=== PATIENT | female | born 1970 | race Caucasian/White ===

== ENCOUNTER 2024-10-27 13:42 | Emergency (ER) | payer OTHER ==
--- NOTE | 2024-10-27 13:52 | ERPHSYRPT ---
- History of Present Illness Time Seen by Provider: 10/27/24 13:50 Source: patient, family Exam Limitations: no limitations Physician History: This is a 54-year-old white female patient who arrives by private vehicle accompanied by her significant other and is a patient of Dr. Zhang with a complaint of right ankle pain and swelling. The patient was taking out the trash to be burnt and in doing so, she stepped in a hole and twisted her right ankle. She felt a snap. Patient took naproxen at approximately 12:30 PM prior to arrival. Patient has a history of anxiety and depression Occurred: just prior to arrival Quality: constant, aching Severity of Pain-Max: moderate Severity of Pain-Current: moderate Lower Extremities Pain: ankle: right Modifying Factors: Improves With: movement Associated Symptoms: popping sensation, other (To bear weight on it) Allergies/Adverse Reactions: Penicillins Allergy (Verified 09/16/15 09:22) Home Medications: ALPRAZolam 1 MG [Xanax 1 mg] 1 mg PO BIDPRN PRN 09/16/15 [History] Travel Risk - International Travel Have you traveled outside of the country in past 3 weeks: No - Emerging Infectious Disease Are you exhibiting symptoms associated with any current EIDs: No - Review of Systems Constitutional: No Symptoms Eyes: No Symptoms Ears, Nose, & Throat: No Symptoms Respiratory: No Symptoms Cardiac: No Symptoms Abdominal/Gastrointestinal: No Symptoms Genitourinary Symptoms: No Symptoms Musculoskeletal: Fall, Injury (Right ankle) Neurological: No Symptoms Psychological: No Symptoms Endocrine: No Symptoms Hematologic/Lymphatic: No Symptoms Immunological/Allergic: No Symptoms All Other Systems: Reviewed and Negative - Past Medical History Pertinent Past Medical History: Yes - Nursing Vital Signs Nursing Vital Signs: Initial Vital Signs Temperature 97.0 F 10/27/24 13:50 Pulse Rate 114 H 10/27/24 13:50 Respiratory Rate 18 10/27/24 13:50 Blood Pressure 101/76 10/27/24 13:50 O2 Sat by Pulse Oximetry 96 10/27/24 13:50 Pain Scale Pain Intensity 8 - Physical Exam General Appearance: mild distress, alert, anxiety, thin Eyes, Ears, Nose, Throat Exam: normal ENT inspection, moist mucous membranes Neck Exam: normal inspection, non-tender, supple, full range of motion Cardiovascular/Respiratory Exam: chest non-tender, no respiratory distress Gastrointestinal/Abdominal Exam: non-tender Back Exam: normal inspection, normal range of motion, No CVA tenderness, No vertebral tenderness Hips Exam: bilateral: non-tender, normal inspection, normal range of motion, no evidence of injury Legs Exam: bilateral leg: non-tender, normal inspection, normal range of motion Knees Exam: bilateral knee: non-tender, normal inspection, normal range of motion, no evidence of injury Ankle Exam: right ankle: soft tissue tenderness (Medial and lateral), swelling (He will and lateral), left ankle: non-tender, normal inspection, normal range of motion, no evidence of injury, bone tenderness, limited range of motion Foot Exam: bilateral foot: non-tender, normal inspection, normal range of motion, no evidence of injury Neuro/Tendon Exam: normal sensation, normal motor functions, normal tendon functions, responds to pain, no evidence tendon injury Mental Status Exam: alert, oriented x 3, cooperative Skin Exam: normal color, warm, dry SpO2 Interpretation: normal O2 Delivery: Room Air - Course Nursing assessment & vital signs reviewed: Yes Ordered Tests: Active Orders 24 hr Category Date Time Status ANKLE (3 VIEWS) Stat Exams 10/27/24 13:55 Completed Medication Summary Discontinued Medications Generic Name Dose Route Start Last Admin Trade Name Anuja PRN Reason Stop Dose Admin Oxycodone/Acetaminophen 1 tab 10/27/24 13:59 10/27/24 14:02 Oxycodone Hcl/Apap 5 Mg/325 Mg Tablet PO 10/27/24 14:00 1 tab STAT STA Administration Oxycodone/Acetaminophen Confirm 10/27/24 14:02 Oxycodone Hcl/Apap 5 Mg/325 Mg Tablet Administered 10/27/24 14:03 Dose 1 tab .ROUTE .STK-MED ONE - Progress Progress: unchanged, pain not gone completely, re-examined Progress Note: 10/27/24 14:19 My medical decision making and the assignment of low to moderate complexity of this patient's medical issue today is based on review of the patient's past medical history, review the patient's medication list, reviewed patient drug allergy list, history present illness and physical findings on examination. The workup in this patient includes x-ray of the patient's right ankle. Differential diagnosis includes but is not limited to fracture/dislocation tibia, fracture/dislocation fibula, ankle sprain 10/27/24 14:34 The final x-ray report was interpreted by the radiologist and I reviewed the impression. Impression states mild anterolateral soft tissue swelling. There are no acute fractures or dislocations present. Counseled pt/family regarding: diagnosis, need for follow-up, rad results Medical Desision Making - Independent Historian Additional History obtained from: Spouse - Diagnostic Testing Diagnostic test were ordered, analyzed, and reviewed by me: Yes Radiological Interpretation: Reviewed by me, Teleradiologist Report - Risk of complications The pt has a mod risk of morbidity or mortality based on: Need for prescription drug management - Departure Departure Disposition: Home Clinical Impression: Right ankle sprain Condition: Stable Critical Care Time: No Referrals: DWAIN ZHANG MD [Primary Care Provider, [facility]] - Follow up/PCP as directed Additional Instructions: Ice pack to right ankle pain and swelling areas 3 times a day for the next 3 days. Add naproxen to the prescription I am remotely sending to your pharmacy. Weightbearing as tolerated. Follow-up with your primary care provider today, by phone, to make arrangements for follow-up appointment for further evaluation management. Your other options are to follow-up with electric stove installer Dr. Roberts in the podiatry clinic. Call call if your symptoms persist to make a follow-up appointment. Finally, you can proceed to the [facility] walk-in clinic. You do not need an appointment. Walk-in hours are Sunday through Sunday 8 AM to 10 AM if your symptoms persist or worsen. Prescriptions: Oxycodone HCl/Acetaminophen [Percocet 5-325 mg Tablet] 1 each PO Q8H PRN PRN #6 tablet MDD 3 PRN Reason: Moderate To Severe Pain
[2024-10-27 13:55] VITALS: RESP 18; TEMP 97
[2024-10-27] MEDS ORDERED: PERCOCET TABLET 5/325MG ONE (14:02)
[2024-10-27] MEDS: PERCOCET TABLET 5/325MG PO STA (14:02)
--- NOTE | 2024-10-27 14:32 | XRAY ---
Indication: Pain following fall. Comparison: February 13, 2006 3 view right ankle demonstrates again demonstrates mild anterolateral soft tissue swelling. 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 New 3 mm well-circumscribed soft tissue ossification posterior laterally. No other bony, articular, or soft tissue abnormalities.
[2024-10-27 15:08] VITALS: BP 80/63; PULSE 68; O2SAT 98
== END 2024-10-27 15:09 | disposition home or self-care (01) ==
LOC: ED 13:42
DX: S93.401A Sprain of unspecified ligament of right ankle, initial encounter (principal); W18.42XA Slipping, tripping and stumbling without falling due to stepping into hole or opening, initial encounter; Z79.891 Long term (current) use of opiate analgesic; Z79.899 Other long term (current) drug therapy; Z72.0 Tobacco use
CPT/HCPCS: 73610; 99282; 99283; A9270-GY